=== PATIENT | female | born 1975 | race Caucasian/White ===

== ENCOUNTER → 2016-04-22 | Outpatient (CLI) | payer MEDICARE, OTHER ==
[~2016-04-22] MED LIST: /FENO14TA PO; /HYDR1TAB PO; AMLO5TAB2 PO; ASPI81TA7 PO; ASPI81TA85 PO; ATEN50TA2 PO; CARA1TAB2 PO; CRES40TA PO; CYCL10TA3 PO; CYMB60CA3 PO; INSUH10VL INJ; LANS30CA PO; LOSA50TA20 PO; LOVA1CAP16 PO; LOVAZA PO; METF1000 PO; METFORMIN PO; MIRA255PW PO; MOTR200T PO; NAPR500T2 PO; NOVO70VL SC; NOVOLOG SC; OXYC30TA4 PO; OXYCON; PERC7.5T12 PO; TOPA100T PO; TOPIPOW3 PO; TRAM37.5 PO; TRIL135C PO; ULTR50TA PO
[2016-04-22 18:11] LABS: BASO # 0.1 K/mm3 (0.0-0.2); BASO % 0.9 % (0.0-1.0); EOS # 0.6 K/mm3 (0.0-0.50); EOS % 5.2 % (0.0-3.0); LARGE UNSTAINED CELL # 0.2 K/mm3 (0.0-0.4); LARGE UNSTAINED CELL % 1.8 % (0.0-4.0); LYMPH # 4.2 K/mm3 (1.5-4.5); LYMPH % 36.5 % (24.0-44.0); MEAN CORPUSCULAR HEMOGLOBIN 29.5 pg (27.0-33.0); MEAN CORPUSCULAR HGB CONC 32.9 g/dl (32.0-36.5); MEAN CORPUSCULAR VOLUME 89.7 fl (80.0-96.0); MONO # 0.6 K/mm3 (0.0-0.8); MONO % 5.2 % (0.0-5.0); NEUTROPHILS # 5.5 K/mm3 (1.8-7.7); NEUTROPHILS % 50.4 % (36.0-66.0); PLATELET COUNT, AUTOMATED 594 k/mm3 (150-450); RED CELL DISTRIBUTION WIDTH 13.6 % (11.5-14.5); WHITE BLOOD COUNT 10.9 K/mm3 (4.0-10.0)
[2016-04-22 18:28] LABS: CALCIUM LEVEL 9.5 MG/DL (8.5-10.1); CREATININE FOR GFR 1.22 MG/DL (0.55-1.02); POTASSIUM SERUM 4.7 MEQ/L (3.5-5.1)
[2016-04-22 18:37] LABS: INR 1.03
== END ==
LOC: M WUC 14:38
PROVIDERS: ATTEND Anesthesiology
DX: Z01.812 Encounter for preprocedural laboratory examination (principal); Z79.899 Other long term (current) drug therapy

== ENCOUNTER → 2016-09-12 | Outpatient (CLI) | payer MEDICARE, OTHER ==
[2016-09-12 13:31] LABS: ALBUMIN 3.5 GM/DL (3.2-5.2); BILIRUBIN,TOTAL 0.1 MG/DL (0.2-1.0); CALCIUM LEVEL 9.4 MG/DL (8.5-10.1); CREATININE FOR GFR 1.23 MG/DL (0.55-1.02); GLOMERULAR FILTRATION RATE 51.2 (>58); POTASSIUM SERUM 5.1 MEQ/L (3.5-5.1)
== END ==
LOC: M WUC 09:57
PROVIDERS: ATTEND Nurse Practitioner Family
DX: E11.9 Type 2 diabetes mellitus without complications (principal)

== ENCOUNTER → 2016-10-31 | Outpatient (CLI) | payer MEDICARE, OTHER ==
[2016-10-31 12:22] LABS: ALBUMIN 3.7 GM/DL (3.2-5.2); ALBUMIN/GLOBULIN RATIO 1.16 (1.00-1.93); BILIRUBIN,TOTAL 0.2 MG/DL (0.2-1.0); CALCIUM LEVEL 10.1 MG/DL (8.5-10.1); CREATININE FOR GFR 1.17 MG/DL (0.55-1.02); GLOMERULAR FILTRATION RATE 54.3 (>58); TOTAL PROTEIN 6.9 GM/DL (6.4-8.2)
[2016-10-31 12:23] LABS: POTASSIUM SERUM 5.3 MEQ/L (3.5-5.1)
== END ==
LOC: M WUC 10:29
PROVIDERS: ATTEND Ophthalmology
DX: E11.3599 Type 2 diabetes mellitus with proliferative diabetic retinopathy without macular edema, unspecified eye (principal)

== ENCOUNTER → 2017-05-28 | Outpatient (CLI) | payer MEDICARE, OTHER | LOC: M WUC 15:21 | DX: M17.11 Unilateral primary osteoarthritis, right knee (principal) | CPT/HCPCS: 73560 ==

== ENCOUNTER → 2017-08-04 | Outpatient (CLI) | payer MEDICARE, OTHER ==
[2017-08-04 12:07] LABS: BLOOD UREA NITROGEN 28 MG/DL (7-18)
[2017-08-04 12:07] LABS: CREATININE FOR GFR 1.31 MG/DL (0.55-1.30); GLOMERULAR FILTRATION RATE 47.4 (>58)
== END ==
LOC: M WUC 08:27
DX: M96.1 Postlaminectomy syndrome, not elsewhere classified (principal)
CPT/HCPCS: 82565

== ENCOUNTER → 2017-09-30 | Outpatient (CLI) | payer MEDICARE, OTHER ==
[2017-09-30 11:59] LABS: BASO # 0.1 10^3/uL (0.0-0.2); BASO % 0.6 % (0.0-1.0); EOS # 0.6 10^3/uL (0.0-0.50); EOS % 6.1 % (0.0-3.0); HEMATOCRIT 30.6 % (36.0-47.0); IMMATURE GRANULOCYTE % 1.1 % (0-3.0); LYMPH # 4.2 10^3/uL (1.5-4.5); LYMPH % 41.2 % (24.0-44.0); MEAN CORPUSCULAR HGB CONC 32.7 g/dl (32.0-36.5); MEAN CORPUSCULAR VOLUME 85.7 fl (80.0-96.0); MONO # 0.5 10^3/uL (0.0-0.8); MONO % 4.7 % (0.0-5.0); NEUTROPHILS # 4.7 10^3/uL (1.8-7.7); NEUTROPHILS % 46.3 % (36.0-66.0); PLATELET COUNT, AUTOMATED 457 10^3/uL (150-450); RED BLOOD COUNT 3.57 10^6/uL (4.00-5.40); RED CELL DISTRIBUTION WIDTH 14.5 % (11.5-14.5); WHITE BLOOD COUNT 10.2 10^3/uL (4.0-10.0)
[2017-09-30 12:14] LABS: APPEARANCE, URINE HAZY (CLEAR); BACTERIA, URINE AUTO NEGATIVE (NEGATIVE); BILIRUBIN, URINE AUTO NEGATIVE (NEGATIVE); BLOOD, URINE BLOOD 1+ (NEGATIVE); COLOR, URINE STRAW (YELLOW); GLUCOSE, URINE (UA) AUTO 3+ mg/dL (NEGATIVE); KETONE, URINE AUTO NEGATIVE (NEGATIVE); LEUKOCYTE ESTERASE, URINE AUTO NEGATIVE (NEGATIVE); MUCUS, URINE SMALL (NEGATIVE); NITRITE, URINE AUTO NEGATIVE (NEGATIVE); PROTEIN, URINE AUTO 1+ mg/dL (NEGATIVE); RBC, URINE AUTO 5 /HPF (0-3); SPECIFIC GRAVITY URINE AUTO 1.016 (1.002-1.035); SQUAMOUS EPITHELIAL CELL UR AU 4 /HPF (0-6); UROBILINOGEN, URINE AUTO 0.2 mg/dL (0.0-2.0); WBC, URINE AUTO 1 /HPF (0-3)
[2017-09-30 12:39] LABS: ANION GAP 8 MEQ/L (8-16); BLOOD UREA NITROGEN 28 MG/DL (7-18); CALCIUM LEVEL 8.8 MG/DL (8.5-10.1); CARBON DIOXIDE LEVEL 23 MEQ/L (21-32); CHLORIDE LEVEL 103 MEQ/L (98-107); GLOMERULAR FILTRATION RATE 40.5 (>58); GLUCOSE, FASTING 373 MG/DL (70-100); POTASSIUM SERUM 4.9 MEQ/L (3.5-5.1); SODIUM LEVEL 134 MEQ/L (136-145)
== END ==
LOC: M WUC 08:19
DX: M96.1 Postlaminectomy syndrome, not elsewhere classified (principal); M51.26 Other intervertebral disc displacement, lumbar region
CPT/HCPCS: 80048

== ENCOUNTER 2017-11-17 12:06 | Emergency (ER) | payer MEDICARE, OTHER ==
[2017-11-17 13:14] LABS: VENOUS BASE EXCESS -2.7 (-2.0-2.0); VENOUS HCO3 23.5 MEQ/L (23.0-27.0); VENOUS O2 SATURATION 72.4 % (60.0-80.0); VENOUS PARTIAL PRESSURE CO2 47.3 mmHg (38.0-50.0); VENOUS PARTIAL PRESSURE O2 39.5 mmHg (30.0-50.0); VENOUS PH 7.314 UNITS (7.330-7.430); VENOUS STANDARD HCO3 21.8 MEQ/L; VENOUS TOTAL CO2 24.9 MEQ/L (24.0-28.0)
[2017-11-17 13:29] LABS: LACTIC ACID SEPSIS PROTOCOL 1.3 MMOL/L (0.4-2.0)
[2017-11-17] MEDS: NS 1,000 ML IV (13:29)
[2017-11-17] MEDS: METOCLOPRAMIDE INJ 10MG/2ML VIAL (J2765) IV (13:29)
[2017-11-17 13:30] LABS: BASO # 0.1 10^3/uL (0.0-0.2); BASO % 0.3 % (0.0-1.0); EOS # 0.4 10^3/uL (0.0-0.50); EOS % 2.5 % (0.0-3.0); HEMATOCRIT 27.8 % (36.0-47.0); HEMOGLOBIN 8.7 g/dl (12.0-15.5); IMMATURE GRANULOCYTE % 0.9 % (0-3.0); LYMPH % 12.3 % (24.0-44.0); MEAN CORPUSCULAR HEMOGLOBIN 27.4 pg (27.0-33.0); MEAN CORPUSCULAR HGB CONC 31.3 g/dl (32.0-36.5); MEAN CORPUSCULAR VOLUME 87.4 fl (80.0-96.0); MONO # 1.2 10^3/uL (0.0-0.8); MONO % 7.4 % (0.0-5.0); NEUTROPHILS # 12.3 10^3/uL (1.8-7.7); NEUTROPHILS % 76.6 % (36.0-66.0); PLATELET COUNT, AUTOMATED 654 10^3/uL (150-450); RED BLOOD COUNT 3.18 10^6/uL (4.00-5.40); RED CELL DISTRIBUTION WIDTH 13.8 % (11.5-14.5); WHITE BLOOD COUNT 16.1 10^3/uL (4.0-10.0)
[2017-11-17 13:32] LABS: ALBUMIN 2.7 GM/DL (3.2-5.2); ALBUMIN/GLOBULIN RATIO 0.66 (1.00-1.93); ALKALINE PHOSPHATASE 61 U/L (45-117); ALT/SGPT 18 U/L (12-78); AMYLASE 22 U/L (25-115); ANION GAP 9 MEQ/L (8-16); AST/SGOT 9 U/L (7-37); BILIRUBIN,DIRECT < 0.1 MG/DL (0.0-0.2); BILIRUBIN,TOTAL 0.3 MG/DL (0.2-1.0); BLOOD UREA NITROGEN 24 MG/DL (7-18); CALCIUM LEVEL 8.7 MG/DL (8.5-10.1); CARBON DIOXIDE LEVEL 26 MEQ/L (21-32); CHLORIDE LEVEL 104 MEQ/L (98-107); CREATININE FOR GFR 1.32 MG/DL (0.55-1.30); GLUCOSE, FASTING 256 MG/DL (70-100); INR 0.99; POTASSIUM SERUM 4.8 MEQ/L (3.5-5.1); PROTHROMBIN TIME 13.2 SECONDS (12.1-14.4); SODIUM LEVEL 139 MEQ/L (136-145); TOTAL PROTEIN 6.8 GM/DL (6.4-8.2)
[2017-11-17 14:08] LABS: APPEARANCE, URINE HAZY (CLEAR); BACTERIA, URINE AUTO NEGATIVE (NEGATIVE); BILIRUBIN, URINE AUTO NEGATIVE (NEGATIVE); BLOOD, URINE BLOOD NEGATIVE (NEGATIVE); COLOR, URINE YELLOW (YELLOW); GLUCOSE, URINE (UA) AUTO 3+ mg/dL (NEGATIVE); KETONE, URINE AUTO NEGATIVE (NEGATIVE); LEUKOCYTE ESTERASE, URINE AUTO NEGATIVE (NEGATIVE); MUCUS, URINE SMALL (NEGATIVE); NITRITE, URINE AUTO NEGATIVE (NEGATIVE); PROTEIN, URINE AUTO 2+ mg/dL (NEGATIVE); RBC, URINE AUTO 5 /HPF (0-3); SPECIFIC GRAVITY URINE AUTO 1.018 (1.002-1.035); SQUAMOUS EPITHELIAL CELL UR AU 2 /HPF (0-6); UROBILINOGEN, URINE AUTO 0.2 mg/dL (0.0-2.0); WBC, URINE AUTO 1 /HPF (0-3)
[2017-11-17] MEDS: LABETALOL HCL 100 MG/20 ML VIAL IV ×2 (16:11→16:19)
[2017-11-17] MEDS: ACETAMINOPHEN 325 MG TAB PO (16:16)
[2017-11-20 14:21] LABS: BEDSIDE GLUCOSE 257 MG/DL (70-105)
== END 2017-11-17 16:33 | disposition short-term general hospital (02) ==
LOC: M ED 12:06
DX: R51 Headache (principal); G96.0 Cerebrospinal fluid leak; E11.9 Type 2 diabetes mellitus without complications; M54.9 Dorsalgia, unspecified; G89.29 Other chronic pain; F17.200 Nicotine dependence, unspecified, uncomplicated; Z88.1 Allergy status to other antibiotic agents; Z88.8 Allergy status to other drugs, medicaments and biological substances; Z79.899 Other long term (current) drug therapy; Z79.4 Long term (current) use of insulin; Z79.2 Long term (current) use of antibiotics
CPT/HCPCS: J2765

== ENCOUNTER → 2018-01-07 | Outpatient (CLI) | payer MEDICARE, OTHER ==
[~2018-01-07] MED LIST changes: -/FENO14TA PO; -/HYDR1TAB PO; -AMLO5TAB2 PO; -ASPI81TA7 PO; -ASPI81TA85 PO; -ATEN50TA2 PO; -CARA1TAB2 PO; -CRES40TA PO; -CYCL10TA3 PO; -CYMB60CA3 PO; -INSUH10VL INJ; +ISOVUE-370 76% 100ML VIAL (Q9967) As Ordered; -LANS30CA PO; -LOSA50TA20 PO; -LOVA1CAP16 PO; -LOVAZA PO; -METF1000 PO; -METFORMIN PO; -MIRA255PW PO; -MOTR200T PO; -NAPR500T2 PO; -NOVO70VL SC; -NOVOLOG SC; -OXYC30TA4 PO; -OXYCON; -PERC7.5T12 PO; -TOPA100T PO; -TOPIPOW3 PO; -TRAM37.5 PO; -TRIL135C PO; -ULTR50TA PO
== END ==
LOC: M RAD 15:16
DX: M96.1 Postlaminectomy syndrome, not elsewhere classified (principal); M48.061 Spinal stenosis, lumbar region without neurogenic claudication; M46.46 Discitis, unspecified, lumbar region
CPT/HCPCS: Q9967

== ENCOUNTER → 2018-01-12 | Outpatient (CLI) | payer MEDICARE, OTHER ==
[2018-01-12 14:10] LABS: BASO # 0.1 10^3/uL (0.0-0.2); BASO % 0.6 % (0.0-1.0); EOS # 0.8 10^3/uL (0.0-0.50); EOS % 7.8 % (0.0-3.0); HEMATOCRIT 30.7 % (36.0-47.0); HEMOGLOBIN 9.6 g/dl (12.0-15.5); IMMATURE GRANULOCYTE % 0.4 % (0-3.0); LYMPH # 2.6 10^3/uL (1.5-4.5); LYMPH % 26.2 % (24.0-44.0); MEAN CORPUSCULAR HEMOGLOBIN 25.7 pg (27.0-33.0); MEAN CORPUSCULAR HGB CONC 31.3 g/dl (32.0-36.5); MEAN CORPUSCULAR VOLUME 82.3 fl (80.0-96.0); MONO # 0.5 10^3/uL (0.0-0.8); MONO % 4.8 % (0.0-5.0); NEUTROPHILS % 60.2 % (36.0-66.0); PLATELET COUNT, AUTOMATED 852 10^3/uL (150-450); RED BLOOD COUNT 3.73 10^6/uL (4.00-5.40); RED CELL DISTRIBUTION WIDTH 15.5 % (11.5-14.5)
[2018-01-12 14:59] LABS: ESTIMATED AVERAGE GLUCOSE 214 MG/DL (60-110); HEMOGLOBIN A1c 9.1 %
[2018-01-12 15:11] LABS: ALBUMIN 3.5 GM/DL (3.2-5.2); ALBUMIN/GLOBULIN RATIO 0.81 (1.00-1.93); ALKALINE PHOSPHATASE 46 U/L (45-117); ALT/SGPT 15 U/L (12-78); ANION GAP 12 MEQ/L (8-16); AST/SGOT 10 U/L (7-37); BILIRUBIN,TOTAL 0.2 MG/DL (0.2-1.0); BLOOD UREA NITROGEN 14 MG/DL (7-18); CALCIUM LEVEL 9.9 MG/DL (8.5-10.1); CARBON DIOXIDE LEVEL 23 MEQ/L (21-32); CHLORIDE LEVEL 108 MEQ/L (98-107); CREATININE FOR GFR 1.07 MG/DL (0.55-1.30); FERRITIN 33 NG/ML (8-252); GLOMERULAR FILTRATION RATE 59.9 (>58); GLUCOSE, FASTING 88 MG/DL (70-100); IRON (FE) 27 UG/DL (50-170); POTASSIUM SERUM 4.9 MEQ/L (3.5-5.1); SODIUM LEVEL 143 MEQ/L (136-145); TOTAL PROTEIN 7.8 GM/DL (6.4-8.2)
[2018-01-12 23:13] LABS: FOLATE 7.9 NG/ML
== END ==
LOC: M LAB 13:34
DX: E11.29 Type 2 diabetes mellitus with other diabetic kidney complication (principal); D50.9 Iron deficiency anemia, unspecified
CPT/HCPCS: 82746

== ENCOUNTER → 2018-08-06 | Outpatient (CLI) | payer MEDICARE, OTHER ==
[~2018-08-06] MED LIST changes: +/HYDR1TAB PO; +ACET1TAB55 PO; +ALPR2TAB3 PO; +AMLO5TAB2 PO; +ASPI81TA7 PO; +ASPI81TA85 PO; +ATEN50TA2 PO; +BYET1INJ SC; +CARA1TAB2 PO; +CEPH500C PO; +CRES40TA PO; +CYCL10TA3 PO; +CYMB60CA3 PO; +EXCETAB80 PO; +IBUP-1022 PO; +INSUH10VL INJ; +INSUHUMDS SC; -ISOVUE-370 76% 100ML VIAL (Q9967) As Ordered; +LANS30CA PO; +LOSA50TA20 PO; +LOVA1CAP16 PO; +LOVAZA PO; +METF1000 PO; +METFORMIN PO; +METH75TA PO; +MOTR200T PO; +NAPR500T2 PO; +NOVO70VL SC; +NOVOLOG SC; +OXYC10TA3 PO; +OXYC30TA4 PO; +OXYCON; +PERC7.5T12 PO; +POLY1POW4 PO; +TOPA100T PO; +TOPIPOW3 PO; +TRAM37.5 PO; +TRES1INJ2 SC; +TRIC145T19 PO; +TRIL135C PO; +ULTR50TA PO
--- NOTE | 2018-08-06 14:18 | REP ---
Right wrist four view : There is no fracture or dislocation. Mineralization and joint spaces are normal. There are no calcifications or foreign bodies. Impression: Negative right wrist . Electronically Signed by Ruperto Dixon MD 08/06/2018 02:09 P
== END ==
LOC: M WUC 12:49
PROVIDERS: ATTEND Nurse Practitioner Family
DX: M25.531 Pain in right wrist (principal)

== ENCOUNTER → 2020-10-24 | Outpatient (CLI) | payer MEDICARE, MEDICAID ==
[~2020-10-24] MED LIST changes: +ISOVUE-300 61% 50ML VIAL As Ordered ONE; +LIDOCAINE 1% MDV 20ML VIAL As Ordered ONE; +METH-1165 PO; -METH75TA PO
--- NOTE | 2020-10-24 10:35 | REP ---
INDICATION: LEFT SHOULDER PAIN. COMPARISON: None. TECHNIQUE: Following left shoulder arthrogram procedure, axial CT imaging is performed with sagittal oblique and coronal oblique reconstructions. FINDINGS: There is a full-thickness partial tear of the anterior supraspinatus tendon. There is a full-thickness partial tear of the infraspinatus tendon as well. There are mild hypertrophic degenerative changes of the acromioclavicular joint. There is a type 1 acromion. Within the bicipital groove the biceps tendon is visualized. 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 There appears to be fraying of the biceps labral complex. No labral tear is seen. There is mild chondromalacia of the glenohumeral joint. There is no evidence of fracture or dislocation. No bone lesion is seen. IMPRESSION: There is a full-thickness partial tear of the anterior supraspinatus tendon. There is a full-thickness partial tear of the infraspinatus tendon. There are mild hypertrophic degenerative changes of the acromioclavicular joint. Fraying of the biceps labral complex with no evidence of a labral tear. <Electronically signed by Ruperto Bennett > 10/24/20 1039
--- NOTE | 2020-10-24 16:30 | REP ---
INDICATION: LEFT SHOULDER PAIN COMPARISON: None. TECHNIQUE: The procedure was performed under the direct supervision of Dr. Bennett. The benefits and risks including but not limited to pain, infection, bleeding and anaphylaxis were explained to the patient and informed consent was obtained. The left glenohumeral joint space was localized using fluoroscopic guidance. The skin was prepped and draped in a sterile fashion. 1% lidocaine was used as a local anesthetic. Using fluoroscopic guidance, and last image hold technology, a 22 gauge spinal needle was inserted and advanced into the joint. 11 cc of Isovue-[id number] was injected into the joint. The needle was removed and the patient was taken to CT scan for postprocedural imaging. Estimated blood loss: Less than 1 cc. The patient tolerated the procedure well and there were no immediate complications. Less than 6 seconds of fluoro time was utilized for this procedure. FINDINGS: None IMPRESSION: Fluoro guidance for left shoulder CT arthrogram injection. <Electronically signed by Julian Leon > 10/24/20 1545 <Electronically signed by Ruperto Bennett > 10/24/20 [id number]
== END ==
LOC: M RADPRO 08:34
PROVIDERS: ATTEND Nurse Practitioner Family
DX: R93.7 Abnormal findings on diagnostic imaging of other parts of musculoskeletal system (principal); M25.512 Pain in left shoulder
CPT/HCPCS: 23350; 73201; 77002; Q9967

== ENCOUNTER 2021-06-22 17:06 | Emergency (ER) | payer MEDICARE, MEDICAID ==
[~2021-06-22] VITALS: Ht 157.5 cm; Wt 89.5 kg
[~2021-06-22 17:06] MED LIST changes: -ISOVUE-300 61% 50ML VIAL As Ordered ONE; -LIDOCAINE 1% MDV 20ML VIAL As Ordered ONE
[2021-06-22] MEDS ORDERED: BRIN10TA4 PO (17:19)
[2021-06-22] MEDS ORDERED: LISI10TA22 PO (17:19)
[2021-06-22] MEDS ORDERED: DEXI60CA2 PO (17:19)
[2021-06-22] MEDS ORDERED: DULA4.5P SC (17:19)
[2021-06-22 17:52] LABS: BASO # 0.1 10^3/uL (0.0-0.2); BASO % 0.5 % (0.0-1.0); EOS # 0.4 10^3/uL (0.0-0.5); EOS % 3.3 % (0.0-3.0); HEMATOCRIT 28.3 % (36.0-47.0); HEMOGLOBIN 9.2 g/dl (12.0-15.5); LYMPH # 3.7 10^3/uL (1.5-5.0); LYMPH % 31.5 % (24.0-44.0); MEAN CORPUSCULAR HEMOGLOBIN 28.5 pg (27.0-33.0); MEAN CORPUSCULAR HGB CONC 32.5 g/dl (32.0-36.5); MEAN CORPUSCULAR VOLUME 87.6 fl (80.0-96.0); MONO # 0.7 10^3/uL (0.0-0.8); MONO % 6.3 % (2.0-8.0); NEUTROPHILS # 6.8 10^3/uL (1.5-8.5); NEUTROPHILS % 57.3 % (36.0-66.0); PLATELET COUNT, AUTOMATED 528 10^3/uL (150-450); RED BLOOD COUNT 3.23 10^6/uL (4.00-5.40); WHITE BLOOD COUNT 11.8 10^3/uL (4.0-10.0)
[2021-06-22] MEDS ORDERED: NS 1,000 ML IV ONE (18:00)
[2021-06-22] MEDS ORDERED: KETOROLAC 30 MG/ML 1ML VIAL IV ONE (18:00)
[2021-06-22] MEDS ORDERED: ONDANSETRON 4MG/2ML VIAL IV ONE ×2 (18:00→21:00)
[2021-06-22] MEDS ORDERED: KETOROLAC 30 MG/ML 1ML VIAL As Ordered ONE ×2 (18:03→18:05)
[2021-06-22 18:22] LABS: ALBUMIN 2.2 GM/DL (3.2-5.2); ALT/SGPT 17 U/L (12-78); BILIRUBIN,DIRECT < 0.1 MG/DL (0.0-0.2); BILIRUBIN,TOTAL 0.3 MG/DL (0.2-1.0); LIPASE 186 U/L (73-393); TOTAL PROTEIN 5.9 GM/DL (6.4-8.2)
[2021-06-22 19:16] LABS: BLOOD UREA NITROGEN 34 MG/DL (7-18); CARBON DIOXIDE LEVEL 22 MEQ/L (21-32); CHLORIDE LEVEL 105 MEQ/L (98-107); CREATININE FOR GFR 1.51 MG/DL (0.55-1.30); GLOMERULAR FILTRATION RATE 39.5 (>58); GLUCOSE, FASTING 292 MG/DL (70-100); POTASSIUM SERUM 4.5 MEQ/L (3.5-5.1); SODIUM LEVEL 138 MEQ/L (136-145)
[2021-06-22 19:27] LABS: HCG, SERUM QUALITATIVE NEGATIVE (NEGATIVE)
[2021-06-22] MEDS ORDERED: ISOVUE-370 76% 100ML VIAL As Ordered ONE (19:33)
[2021-06-22] MEDS ORDERED: CIPR250T3 PO (21:03)
[2021-06-22] MEDS ORDERED: CIPROFLOXACIN 250MG TAB PO ONE (21:05)
[2021-06-22 21:35] VITALS: BP 184/92
== END 2021-06-22 21:36 | disposition home or self-care (01) ==
LOC: M ED 17:06
DX: N39.0 Urinary tract infection, site not specified (principal); E11.9 Type 2 diabetes mellitus without complications; E78.5 Hyperlipidemia, unspecified; I10 Essential (primary) hypertension; N18.9 Chronic kidney disease, unspecified; F17.200 Nicotine dependence, unspecified, uncomplicated; Z88.1 Allergy status to other antibiotic agents; Z88.6 Allergy status to analgesic agent; Z88.8 Allergy status to other drugs, medicaments and biological substances
CPT/HCPCS: 36415; 74177; 80047; 80048; 80076; 81001; 83690; 84703; 85025; 87088; 87186; 96361; 96374; 96375; 96376; 99284; J1885; J2405; Q9967

== ENCOUNTER 2021-06-24 14:10 | Observation (INO) | payer MEDICARE, MEDICAID ==
[~2021-06-24] VITALS: Ht 157.5 cm; Wt 108.0 kg
[~2021-06-24 14:10] MED LIST changes: +BRIN10TA4 PO; +CIPR250T3 PO; +DEXI60CA2 PO; +DULA4.5P SC; +LISI10TA22 PO
[2021-06-24 16:32] LABS: BASO # 0.1 10^3/uL (0.0-0.2); BASO % 0.6 % (0.0-1.0); EOS # 0.4 10^3/uL (0.0-0.5); EOS % 3.6 % (0.0-3.0); HEMATOCRIT 27.2 % (36.0-47.0); HEMOGLOBIN 8.8 g/dl (12.0-15.5); LYMPH # 3.7 10^3/uL (1.5-5.0); LYMPH % 36.8 % (24.0-44.0); MEAN CORPUSCULAR HEMOGLOBIN 28.9 pg (27.0-33.0); MEAN CORPUSCULAR HGB CONC 32.4 g/dl (32.0-36.5); MEAN CORPUSCULAR VOLUME 89.2 fl (80.0-96.0); MONO # 0.6 10^3/uL (0.0-0.8); MONO % 5.6 % (2.0-8.0); NEUTROPHILS # 5.2 10^3/uL (1.5-8.5); NEUTROPHILS % 52.6 % (36.0-66.0); PLATELET COUNT, AUTOMATED 512 10^3/uL (150-450); RED BLOOD COUNT 3.05 10^6/uL (4.00-5.40)
[2021-06-24] MEDS ORDERED: MORPHINE 4 MG/ML 1ML VIAL/SYRINGE (J2270) IV ONE (16:35)
[2021-06-24] MEDS ORDERED: ONDANSETRON 4MG/2ML VIAL IV ONE ×2 (16:35→18:45)
[2021-06-24] MEDS ORDERED: cefTRIAXone SOD 1 GM in D5W MINI-BAG PLUS 50 ML IV ONE (16:35)
[2021-06-24 16:49] LABS: CREATININE FOR GFR 1.59 MG/DL (0.55-1.30); GLOMERULAR FILTRATION RATE 37.2 (>58); POTASSIUM SERUM 4.6 MEQ/L (3.5-5.1)
[2021-06-24] MEDS ORDERED: ISOVUE-370 76% 100ML VIAL As Ordered ONE (16:58)
[2021-06-24 17:18] LABS: RSV AMPLIFICATION NEGATIVE (NEGATIVE)
[2021-06-24] MEDS ORDERED: ACETAMINOPHEN 325 MG TAB PO ONE (18:45)
[2021-06-24] MEDS ORDERED: LEVO2TA PO (18:50)
[2021-06-24] MEDS ORDERED: ONDANSETRON 4MG/2ML VIAL IV PRN (19:00)
[2021-06-24] MEDS ORDERED: TRIL135C6 PO (19:01)
[2021-06-24] MEDS ORDERED: METF-838 PO (19:01)
[2021-06-24] MEDS ORDERED: SFHIBU200 PO (19:01)
[2021-06-24] MEDS ORDERED: HOME MED LIST COMPLETE! XX SCH ×2 (19:05→19:15)
[2021-06-24] MEDS: NS 1,000 ML IV SCH (20:27)
[2021-06-24] MEDS ORDERED: KETOROLAC 30 MG/ML 1ML VIAL IV ONE (20:30)
[2021-06-24] MEDS ORDERED: DEXTROSE 50% 50 ML SYRINGE IV PRN (21:10)
[2021-06-24] MEDS ORDERED: GLUCAGON INJ 1MG VIAL SC PRN (21:10)
[2021-06-24] MEDS ORDERED: GLUCOSE 4GM CHEW TABLET PO PRN (21:10)
[2021-06-24 21:30] VITALS: BP 166/90
[2021-06-24] MEDS: **hydrALAZINE** 10 MG TAB PO PRN (23:01)
[2021-06-24 23:02] VITALS: BP 172/93
[2021-06-25] VITALS (7 sets, daily range): BP systolic 138–220; BP diastolic 67–120
[2021-06-25] MEDS: UNRESOLVED PATIENT OWN MED ORDER XX SCH (00:01)
[2021-06-25] MEDS: NS 1,000 ML IV SCH (04:11)
[2021-06-25] MEDS: LEVOTHYROXINE 100MCG TABLET (0.1MG) PO SCH (06:16)
[2021-06-25 06:25] LABS: BASO # 0.1 10^3/uL (0.0-0.2); BASO % 0.5 % (0.0-1.0); EOS # 0.3 10^3/uL (0.0-0.5); EOS % 3.4 % (0.0-3.0); HEMATOCRIT 24.4 % (36.0-47.0); HEMOGLOBIN 7.6 g/dl (12.0-15.5); LYMPH # 3.8 10^3/uL (1.5-5.0); MEAN CORPUSCULAR HGB CONC 31.1 g/dl (32.0-36.5); MONO # 0.6 10^3/uL (0.0-0.8); MONO % 6.4 % (2.0-8.0); NEUTROPHILS # 4.6 10^3/uL (1.5-8.5); NEUTROPHILS % 48.7 % (36.0-66.0); PLATELET COUNT, AUTOMATED 464 10^3/uL (150-450); RED BLOOD COUNT 2.71 10^6/uL (4.00-5.40); WHITE BLOOD COUNT 9.5 10^3/uL (4.0-10.0)
[2021-06-25 06:52] LABS: CALCIUM LEVEL 7.9 MG/DL (8.5-10.1); CREATININE FOR GFR 1.72 MG/DL (0.55-1.30); POTASSIUM SERUM 4.3 MEQ/L (3.5-5.1)
[2021-06-25] MEDS: PANTOPRAZOLE 40MG TAB (PROTONIX) PO SCH (08:02)
[2021-06-25] MEDS: LACTOBACILLUS ACIDOPHILUS CAP (BACID) PO SCH (08:02)
[2021-06-25] MEDS: FENOFIBRATE 145MG TABLET (TRICOR) PO SCH (08:02)
[2021-06-25] MEDS: HumaLOG INSULIN (NovoLOG) PER UNIT SC SCH ×2 (08:03→12:24)
[2021-06-25] MEDS: LEVEMIR (INSULIN DETEMIR) 1 UNITS/0.01ML SC SCH (08:03)
[2021-06-25] MEDS: ACETAMINOPHEN TAB 650MG DOSE (2X325MG) PO PRN ×3 (08:10→20:59)
[2021-06-25] MEDS ORDERED: ENTER DRUG NAME HERE (PATIENT'S OWN MED) PO SCH (09:00)
[2021-06-25] MEDS: HEPARIN SOD (PORCINE) 5000UNITS/ML 1ML VIAL/SYRINGE SQ SCH ×2 (14:04→21:00)
[2021-06-25] MEDS: **hydrALAZINE** 10 MG TAB PO PRN ×2 (14:56→21:11)
[2021-06-25] MEDS ORDERED: amLODIPine 5 MG TAB PO ONE (16:30)
[2021-06-25] MEDS ORDERED: HumaLOG INSULIN (NovoLOG) PER UNIT SC SCH ×3 (17:30→21:00)
[2021-06-25] MEDS ORDERED: cefTRIAXone SOD 1 GM in D5W MINI-BAG PLUS 50 ML IV SCH (19:00)
[2021-06-25] MEDS ORDERED: diphenhydrAMINE 50MG/ML VIAL (J1200) IV ONE (22:25)
[2021-06-25] MEDS ORDERED: **hydrALAZINE** 10 MG TAB PO ONE (22:25)
[2021-06-25] MEDS ORDERED: PROCHLORPERAZINE 10MG/2ML VIAL (J0780 PER 1) IV ONE (22:25)
[2021-06-25] MEDS ORDERED: traMADol 50 MG TAB PO PRN (22:30)
[2021-06-25] MEDS ORDERED: LABETALOL 100MG/20ML VIAL IV STA (23:34)
[2021-06-26] VITALS (11 sets, daily range): BP systolic 146–217; BP diastolic 72–104
[2021-06-26] MEDS: UNRESOLVED PATIENT OWN MED ORDER XX SCH (00:01)
[2021-06-26] MEDS ORDERED: LABETALOL 100MG/20ML VIAL IV STA (00:58)
[2021-06-26] MEDS ORDERED: hydrALAZINE 20MG/ML 1ML VIAL (J0360 PER 20MG) IV ONE ×2 (02:00→04:00)
[2021-06-26] MEDS ORDERED: FUROSEMIDE 20MG/2ML VIAL (J1940) IV ONE (02:00)
[2021-06-26] MEDS: HEPARIN SOD (PORCINE) 5000UNITS/ML 1ML VIAL/SYRINGE SQ SCH ×2 (05:34→13:51)
[2021-06-26] MEDS: LEVOTHYROXINE 100MCG TABLET (0.1MG) PO SCH (05:34)
[2021-06-26 05:40] LABS: BASO # 0.1 10^3/uL (0.0-0.2); BASO % 0.5 % (0.0-1.0); EOS # 0.3 10^3/uL (0.0-0.5); EOS % 2.9 % (0.0-3.0); HEMATOCRIT 27.3 % (36.0-47.0); HEMOGLOBIN 8.8 g/dl (12.0-15.5); LYMPH # 2.5 10^3/uL (1.5-5.0); LYMPH % 25.2 % (24.0-44.0); MEAN CORPUSCULAR HEMOGLOBIN 28.2 pg (27.0-33.0); MEAN CORPUSCULAR HGB CONC 32.2 g/dl (32.0-36.5); MEAN CORPUSCULAR VOLUME 87.5 fl (80.0-96.0); MONO # 0.7 10^3/uL (0.0-0.8); MONO % 6.4 % (2.0-8.0); NEUTROPHILS # 6.4 10^3/uL (1.5-8.5); NEUTROPHILS % 63.3 % (36.0-66.0); PLATELET COUNT, AUTOMATED 523 10^3/uL (150-450); RED BLOOD COUNT 3.12 10^6/uL (4.00-5.40); WHITE BLOOD COUNT 10.1 10^3/uL (4.0-10.0)
[2021-06-26] MEDS ORDERED: LevoFLOXacin 750 MG TABLET PO SCH (06:00)
[2021-06-26 06:02] LABS: CALCIUM LEVEL 8.8 MG/DL (8.5-10.1); CREATININE FOR GFR 1.65 MG/DL (0.55-1.30); GLOMERULAR FILTRATION RATE 35.7 (>58); MAGNESIUM LEVEL 1.7 MG/DL (1.8-2.4); POTASSIUM SERUM 4.5 MEQ/L (3.5-5.1)
[2021-06-26] MEDS ORDERED: MAG SULF 1GM/100ML (MAG RUN) 1 GM in IV 1 EA IV ONE (08:00)
[2021-06-26] MEDS: LEVEMIR (INSULIN DETEMIR) 1 UNITS/0.01ML SC SCH (08:10)
[2021-06-26] MEDS: HumaLOG INSULIN (NovoLOG) PER UNIT SC SCH ×2 (08:11→11:52)
[2021-06-26] MEDS: LACTOBACILLUS ACIDOPHILUS CAP (BACID) PO SCH (08:11)
[2021-06-26] MEDS: ACETAMINOPHEN TAB 650MG DOSE (2X325MG) PO PRN (08:11)
[2021-06-26] MEDS: FENOFIBRATE 145MG TABLET (TRICOR) PO SCH (08:12)
[2021-06-26] MEDS: PANTOPRAZOLE 40MG TAB (PROTONIX) PO SCH (08:12)
[2021-06-26] MEDS ORDERED: **hydrALAZINE HCL** 25 MG TAB PO SCH (09:00)
[2021-06-26] MEDS ORDERED: amLODIPine 5 MG TAB PO SCH (09:00)
[2021-06-26] MEDS ORDERED: CARVedilol 12.5 MG TAB PO SCH (09:00)
[2021-06-26] MEDS ORDERED: CEFDINIR 300 MG CAP (OMNICEF) PO SCH (09:00)
[2021-06-26] MEDS ORDERED: FIORICET TAB PO ONE (11:35)
[2021-06-26] MEDS ORDERED: HumaLOG INSULIN (NovoLOG) PER UNIT SC SCH (12:00)
[2021-06-26] MEDS ORDERED: FIORICET TAB PO PRN (13:35)
[2021-06-26] MEDS ORDERED: RISATAB3 PO (16:01)
[2021-06-26] MEDS ORDERED: CARV12.5 PO (16:01)
[2021-06-26] MEDS ORDERED: HYDR25TA PO (16:01)
[2021-06-26] MEDS ORDERED: CEFD300CAP PO (16:01)
== END 2021-06-26 17:31 | disposition home or self-care (01) ==
LOC: M ED 14:10 → M ED INP 18:58 → ENRESERV 20:14 → M MSPAV 21:25 → M PCU 06-25 23:56
PROVIDERS: ADMIT Family Medicine; ATTEND Internal Medicine
DX: N39.0 Urinary tract infection, site not specified (principal); N10 Acute pyelonephritis; R51.9 Headache, unspecified; I12.9 Hypertensive chronic kidney disease with stage 1 through stage 4 chronic kidney disease, or unspecified chronic kidney disease; E11.9 Type 2 diabetes mellitus without complications; N18.9 Chronic kidney disease, unspecified; D64.9 Anemia, unspecified; G03.9 Meningitis, unspecified; F41.9 Anxiety disorder, unspecified; E03.9 Hypothyroidism, unspecified; E66.9 Obesity, unspecified; G89.29 Other chronic pain; Z79.4 Long term (current) use of insulin; Z79.899 Other long term (current) drug therapy; Z88.1 Allergy status to other antibiotic agents; Z88.8 Allergy status to other drugs, medicaments and biological substances; Z79.84 Long term (current) use of oral hypoglycemic drugs
CPT/HCPCS: 36415; 70450; 71045; 74177; 80048; 81001; 83605; 83735; 85025; 87040; 87631; 93005; 93041; 94760; 96361; 96365; 96366; 96372; 96375; 96376; 99285; G0378; J0360; J0696; J0780; J1200; J1644; J1815; J1885; J1940; J2270; J2405; J3475; Q9967

== ENCOUNTER → 2021-07-08 | Outpatient (REF) | payer MEDICARE, MEDICAID ==
[~2021-07-08] MED LIST changes: +CARV12.5 PO; +CEFD300CAP PO; +HYDR25TA PO; +LEVO2TA PO; +METF-838 PO; +RISATAB3 PO; +SFHIBU200 PO; +TRIL135C6 PO
[2021-07-08 16:11] LABS: BASO # 0.1 10^3/uL (0.0-0.2); BASO % 0.6 % (0.0-1.0); EOS # 0.4 10^3/uL (0.0-0.5); HEMOGLOBIN 9.1 g/dl (12.0-15.5); LYMPH # 3.4 10^3/uL (1.5-5.0); LYMPH % 34.8 % (24.0-44.0); MEAN CORPUSCULAR HEMOGLOBIN 28.1 pg (27.0-33.0); MEAN CORPUSCULAR HGB CONC 31.4 g/dl (32.0-36.5); MEAN CORPUSCULAR VOLUME 89.5 fl (80.0-96.0); MONO # 0.7 10^3/uL (0.0-0.8); MONO % 7.1 % (2.0-8.0); NEUTROPHILS # 5.2 10^3/uL (1.5-8.5); NEUTROPHILS % 52.4 % (36.0-66.0); PLATELET COUNT, AUTOMATED 613 10^3/uL (150-450); RED BLOOD COUNT 3.24 10^6/uL (4.00-5.40); WHITE BLOOD COUNT 9.9 10^3/uL (4.0-10.0)
[2021-07-08 16:35] LABS: CALCIUM LEVEL 8.6 MG/DL (8.5-10.1); CREATININE FOR GFR 1.68 MG/DL (0.55-1.30); GLOMERULAR FILTRATION RATE 34.9 (>58); POTASSIUM SERUM 5.2 MEQ/L (3.5-5.1)
== END ==
LOC: M WUC 15:30
PROVIDERS: ATTEND Family Medicine
DX: N12 Tubulo-interstitial nephritis, not specified as acute or chronic (principal); I10 Essential (primary) hypertension

== ENCOUNTER → 2021-07-08 | Outpatient (REF) | payer MEDICARE, MEDICAID ==
[2021-07-08 16:42] LABS: THYROID STIMULATING HORMONE 80.3 uIU/ML (0.358-3.740)
[2021-07-08 16:43] LABS: TOTAL 25(OH) VITAMIN D 15.2 NG/ML (30.0-100.0)
[2021-07-08 16:52] LABS: HEMOGLOBIN A1c 11.5 %
== END ==
LOC: M WUC 15:32
PROVIDERS: ATTEND Internal Medicine Endocrinology, Diabetes & Metabolism
DX: E03.9 Hypothyroidism, unspecified (principal); E55.9 Vitamin D deficiency, unspecified; E11.65 Type 2 diabetes mellitus with hyperglycemia; N12 Tubulo-interstitial nephritis, not specified as acute or chronic; I10 Essential (primary) hypertension; Z79.4 Long term (current) use of insulin

== ENCOUNTER → 2021-07-10 | Outpatient (REF) | payer MEDICARE, MEDICAID ==
[2021-07-10 17:14] LABS: APPEARANCE, URINE HAZY (CLEAR); BACTERIA, URINE AUTO NEGATIVE (NEGATIVE); BILIRUBIN, URINE AUTO NEGATIVE (NEGATIVE); BLOOD, URINE BLOOD NEGATIVE (NEGATIVE); COLOR, URINE YELLOW (YELLOW); GLUCOSE, URINE (UA) AUTO 3+ mg/dL (NEGATIVE); KETONE, URINE AUTO NEGATIVE (NEGATIVE); LEUKOCYTE ESTERASE, URINE AUTO NEGATIVE (NEGATIVE); NITRITE, URINE AUTO NEGATIVE (NEGATIVE); PROTEIN, URINE AUTO 3+ mg/dL (NEGATIVE); RBC, URINE AUTO 0 /HPF (0-3); SPECIFIC GRAVITY URINE AUTO 1.015 (1.002-1.035); SQUAMOUS EPITHELIAL CELL UR AU 6 /HPF (0-6); UROBILINOGEN, URINE AUTO 0.2 mg/dL (0.0-2.0); WBC, URINE AUTO 1 /HPF (0-3)
== END ==
LOC: M SMT 16:46
PROVIDERS: ATTEND Nurse Practitioner Women's Health
DX: N12 Tubulo-interstitial nephritis, not specified as acute or chronic (principal)

== ENCOUNTER 2021-09-10 18:03 | Emergency (ER) | payer MEDICARE, MEDICAID ==
[~2021-09-10] VITALS: Ht 157.5 cm; Wt 98.2 kg
[2021-09-11 00:21] LABS: ALBUMIN 2.8 GM/DL (3.2-5.2); ALT/SGPT 22 U/L (12-78); BILIRUBIN,DIRECT < 0.1 MG/DL (0.0-0.2); BILIRUBIN,TOTAL 0.1 MG/DL (0.2-1.0); BLOOD UREA NITROGEN 33 MG/DL (7-18); CALCIUM LEVEL 8.2 MG/DL (8.5-10.1); CARBON DIOXIDE LEVEL 23 MEQ/L (21-32); CHLORIDE LEVEL 111 MEQ/L (98-107); CREATININE FOR GFR 1.77 MG/DL (0.55-1.30); GLOMERULAR FILTRATION RATE 32.9 (>58); GLUCOSE, FASTING 238 MG/DL (70-100); LIPASE 233 U/L (73-393); POTASSIUM SERUM 4.5 MEQ/L (3.5-5.1); SODIUM LEVEL 140 MEQ/L (136-145); TOTAL PROTEIN 5.9 GM/DL (6.4-8.2)
[2021-09-11 00:27] LABS: HEMATOCRIT 28.1 % (36.0-47.0); HEMOGLOBIN 9.3 g/dl (12.0-15.5); MEAN CORPUSCULAR HEMOGLOBIN 28.8 pg (27.0-33.0); MEAN CORPUSCULAR HGB CONC 33.1 g/dl (32.0-36.5); PLATELET COUNT, AUTOMATED 496 10^3/uL (150-450); RED BLOOD COUNT 3.23 10^6/uL (4.00-5.40); WHITE BLOOD COUNT 10.4 10^3/uL (4.0-10.0)
[2021-09-11 01:11] LABS: ATYPICAL LYMPH 1 % (0-5); EOSINOPHILS 7 % (0-3); LYMPHOCYTES 45 % (16-44); MONOCYTES 4 % (0-5); NEUTROPHILS 43 % (28-66); PLATELET ESTIMATE INCREASED (NORMAL)
[2021-09-11] MEDS ORDERED: MORPHINE 4 MG/ML 1ML VIAL/SYRINGE IV PRN (02:40)
[2021-09-11] MEDS ORDERED: ONDANSETRON 4MG/2ML VIAL IV ONE (02:40)
[2021-09-11] MEDS: GASTROGRAFIN SOLUTION 30ML PO SCH ×2 (03:15→03:45)
[2021-09-11] MEDS ORDERED: OXYCODONE/APAP 5MG/325MG(BULK FOR ED) 1 TABLET PO ONE (06:30)
[2021-09-11] MEDS ORDERED: NAPROXEN 250 MG TAB PO ONE (06:30)
[2021-09-11] MEDS ORDERED: NAPR-849 PO (06:30)
[2021-09-11 06:46] VITALS: BP 148/92
== END 2021-09-11 06:35 | disposition home or self-care (01) ==
LOC: M ED 18:03
DX: R10.9 Unspecified abdominal pain (principal); E11.9 Type 2 diabetes mellitus without complications; I12.9 Hypertensive chronic kidney disease with stage 1 through stage 4 chronic kidney disease, or unspecified chronic kidney disease; Z87.448 Personal history of other diseases of urinary system; K21.9 Gastro-esophageal reflux disease without esophagitis; F41.1 Generalized anxiety disorder; I25.10 Atherosclerotic heart disease of native coronary artery without angina pectoris; R16.0 Hepatomegaly, not elsewhere classified; Z79.4 Long term (current) use of insulin; Z79.899 Other long term (current) drug therapy; Z88.1 Allergy status to other antibiotic agents; Z88.8 Allergy status to other drugs, medicaments and biological substances
CPT/HCPCS: 74176; 80048; 80076; 81001; 83690; 85025; 93005; 96374; 96375; 99284; J2270; J2405; Q9963

== ENCOUNTER → 2021-09-17 | Outpatient (REF) | payer MEDICARE, MEDICAID ==
[~2021-09-17] MED LIST changes: +NAPR-849 PO
[2021-09-17 17:47] LABS: TOTAL PROTEIN,RANDOM URINE 378.3 MG/DL (0.0-12.0)
[2021-09-17 17:47] LABS: PERCENT SATURATION 5.2 % (13.2-45.0)
== END ==
LOC: M LAB REF 16:46
PROVIDERS: ATTEND Internal Medicine Nephrology
DX: I10 Essential (primary) hypertension (principal); E11.21 Type 2 diabetes mellitus with diabetic nephropathy; E61.1 Iron deficiency

== ENCOUNTER 2021-09-30 09:15 | Outpatient (CLI) | payer MEDICARE, MEDICAID ==
[~2021-09-30] VITALS: Ht 157.5 cm; Wt 104.3 kg
[2021-09-30 09:15] VITALS: BP 139/74
[~2021-09-30 09:15] MED LIST changes: +ALBUTEROL SULFATE 2.5 MG/0.5 ML INH NEB SOLN INH PRN; +EPINEPHrine INJ 1 MG/ML 1ML AMP IM PRN; +FERRIC CARBOXYMALTOSE INJ 750 MG in NS 250 ML (>50kg) IV ONE; +NS 1,000 ML IV SCH; +diphenhydrAMINE 50MG/ML VIAL (J1200) IV PRN; +methylPREDNISolone 125MG 2ML VIAL IV PRN
[2021-09-30 10:50] VITALS: BP 149/73
== END 2021-09-30 11:05 | disposition home or self-care (01) ==
LOC: M INFU 09:15
PROVIDERS: ATTEND Internal Medicine Nephrology
DX: E61.1 Iron deficiency (principal); Z88.1 Allergy status to other antibiotic agents; Z88.8 Allergy status to other drugs, medicaments and biological substances
CPT/HCPCS: 96365; J1439

== ENCOUNTER 2021-10-07 08:50 | Outpatient (CLI) | payer MEDICARE, MEDICAID ==
[~2021-10-07] VITALS: Ht 157.5 cm; Wt 102.7 kg
[2021-10-07 08:50] VITALS: BP 133/66
[~2021-10-07 08:50] MED LIST changes: -FERRIC CARBOXYMALTOSE INJ 750 MG in NS 250 ML (>50kg) IV ONE; -NS 1,000 ML IV SCH
[2021-10-07] MEDS ORDERED: FERRIC CARBOXYMALTOSE INJ 750 MG in NS 250 ML (>50kg) IV ONE ×3 (09:00)
[2021-10-07] MEDS ORDERED: NS 1,000 ML IV SCH (09:00)
[2021-10-07 10:15] VITALS: BP 177/86
== END 2021-10-07 10:25 | disposition home or self-care (01) ==
LOC: M INFU 08:50
PROVIDERS: ATTEND Internal Medicine Nephrology
DX: E61.1 Iron deficiency (principal); Z88.8 Allergy status to other drugs, medicaments and biological substances
CPT/HCPCS: 96365; J1439

== ENCOUNTER → 2021-12-18 | Outpatient (REF) | payer MEDICARE, MEDICAID ==
[~2021-12-18] MED LIST changes: -ALBUTEROL SULFATE 2.5 MG/0.5 ML INH NEB SOLN INH PRN; -EPINEPHrine INJ 1 MG/ML 1ML AMP IM PRN; -diphenhydrAMINE 50MG/ML VIAL (J1200) IV PRN; -methylPREDNISolone 125MG 2ML VIAL IV PRN
== END ==
LOC: M LAB REF 17:42
PROVIDERS: ATTEND Internal Medicine Nephrology
DX: E61.1 Iron deficiency (principal)

== ENCOUNTER → 2022-05-09 | Outpatient (REF) | payer MEDICARE, MEDICAID ==
[2022-05-09 18:20] LABS: PERCENT SATURATION 19.4 % (13.2-45.0)
== END ==
LOC: M LAB REF 17:04
PROVIDERS: ATTEND Internal Medicine Nephrology
DX: E61.1 Iron deficiency (principal)

== ENCOUNTER → 2022-07-09 | Outpatient (CLI) | payer MEDICARE, MEDICAID | LOC: M RAD 14:37 | PROVIDERS: ATTEND Physician Assistant | DX: J32.8 Other chronic sinusitis (principal); J34.2 Deviated nasal septum ==

== ENCOUNTER → 2022-07-17 | Outpatient (CLI) | payer MEDICARE, MEDICAID ==
[2022-07-17 16:56] LABS: HEMOGLOBIN A1c 6.8 % (4.0-6.0)
[2022-07-17 17:16] LABS: CREATININE, URINE 44.2 MG/DL
[2022-07-17 17:17] LABS: ALBUMIN 3.5 G/DL (3.2-5.2); BILIRUBIN,TOTAL 0.2 MG/DL (0.3-1.2); CALCIUM LEVEL 9.4 MG/DL (8.5-10.1); CHOLESTEROL RISK RATIO 5.09 (<5); CREATININE FOR GFR 1.81 MG/DL (0.55-1.30); GLOMERULAR FILTRATION RATE 31.9 (>58); HDL CHOLESTEROL 53.8 MG/DL (>40); LDL CHOLESTEROL 154.6 MG/DL (<100); NON-HDL-C 220.2 MG/DL; POTASSIUM SERUM 4.7 MMOL/L (3.5-5.1); TOTAL PROTEIN 6.7 G/DL (5.7-8.2)
[2022-07-17 17:19] LABS: FREE T4 1.22 NG/DL (0.89-1.76); THYROID STIMULATING HORMONE 2.086 uIU/ML (0.55-4.78); TOTAL 25(OH) VITAMIN D 17.4 NG/ML (20.0-100.0)
[2022-07-17 17:28] LABS: MAU/CREAT RATIO 5391.4 MCG/MG (0.0-30.0)
[2022-07-19 08:09] LABS: LDL DIRECT 168 mg/dL (0-99)
== END ==
LOC: M WUC 13:58
PROVIDERS: ATTEND Nurse Practitioner Family
DX: E55.9 Vitamin D deficiency, unspecified (principal); Z79.4 Long term (current) use of insulin; E11.65 Type 2 diabetes mellitus with hyperglycemia

== ENCOUNTER → 2022-07-17 | Outpatient (CLI) | payer MEDICARE, MEDICAID ==
[2022-07-17 16:46] LABS: BASO # 0.1 10^3/uL (0.0-0.2); BASO % 0.8 % (0.0-1.0); EOS # 0.4 10^3/uL (0.0-0.5); EOS % 4.4 % (0.0-3.0); HEMATOCRIT 31.7 % (36.0-47.0); HEMOGLOBIN 10.1 g/dl (12.0-15.5); LYMPH # 2.9 10^3/uL (1.5-5.0); LYMPH % 28.7 % (24.0-44.0); MEAN CORPUSCULAR HEMOGLOBIN 29.9 pg (27.0-33.0); MEAN CORPUSCULAR HGB CONC 31.9 g/dl (32.0-36.5); MEAN CORPUSCULAR VOLUME 93.8 fl (80.0-96.0); MONO # 0.5 10^3/uL (0.0-0.8); MONO % 5.2 % (2.0-8.0); NEUTROPHILS # 5.9 10^3/uL (1.5-8.5); NEUTROPHILS % 59.6 % (36.0-66.0); PLATELET COUNT, AUTOMATED 661 10^3/uL (150-450); RED BLOOD COUNT 3.38 10^6/uL (4.00-5.40); WHITE BLOOD COUNT 9.9 10^3/uL (4.0-10.0)
[2022-07-17 17:20] LABS: FOLLICLE STIMULATING HORMONE 52.3 mIU/ML; LUTEINIZING HORMONE 58.7 mIU/ML; PROLACTIN 5.1 NG/ML
[2022-07-17 17:21] LABS: PROGESTERONE 0.34 NG/ML
== END ==
LOC: M WUC 13:54
PROVIDERS: ATTEND Nurse Practitioner Family
DX: R61 Generalized hyperhidrosis (principal); E55.9 Vitamin D deficiency, unspecified; Z79.4 Long term (current) use of insulin; E11.65 Type 2 diabetes mellitus with hyperglycemia

== ENCOUNTER → 2022-07-23 | Outpatient (REF) | payer MEDICARE, MEDICAID ==
[2022-07-23 18:51] LABS: BASO # 0.1 10^3/uL (0.0-0.2); BASO % 0.9 % (0.0-1.0); EOS # 0.7 10^3/uL (0.0-0.5); EOS % 7.2 % (0.0-3.0); HEMATOCRIT 31.8 % (36.0-47.0); HEMOGLOBIN 9.8 g/dl (12.0-15.5); LYMPH # 3.3 10^3/uL (1.5-5.0); LYMPH % 34.8 % (24.0-44.0); MEAN CORPUSCULAR HEMOGLOBIN 29.7 pg (27.0-33.0); MEAN CORPUSCULAR HGB CONC 30.8 g/dl (32.0-36.5); MEAN CORPUSCULAR VOLUME 96.4 fl (80.0-96.0); MONO # 0.6 10^3/uL (0.0-0.8); MONO % 6.2 % (2.0-8.0); NEUTROPHILS # 4.7 10^3/uL (1.5-8.5); NEUTROPHILS % 49.8 % (36.0-66.0); PLATELET COUNT, AUTOMATED 633 10^3/uL (150-450); WHITE BLOOD COUNT 9.4 10^3/uL (4.0-10.0)
[2022-07-23 19:17] LABS: FERRITIN 108.1 NG/ML (7.3-270.7)
== END ==
LOC: M LAB REF 16:45
PROVIDERS: ATTEND Internal Medicine Nephrology
DX: E63.1 Imbalance of constituents of food intake (principal)

== ENCOUNTER 2022-07-29 08:19 | Outpatient (CLI) | payer MEDICARE, MEDICAID ==
[~2022-07-29] VITALS: Ht 157.5 cm; Wt 102.7 kg
[~2022-07-29 08:19] MED LIST changes: +ALBUTEROL SULFATE 2.5MG/0.5ML INH NEB SOLN INH PRN; +EPINEPHrine INJ 1 MG/ML 1ML AMP IM PRN; +diphenhydrAMINE 50MG/ML VIAL IV PRN; +methylPREDNISolone 125MG 2ML VIAL IV PRN
[2022-07-29] MEDS ORDERED: NS IV ONE (08:30)
[2022-07-29] MEDS ORDERED: IRON SUCROSE IV ONE (08:30)
[2022-07-29] MEDS ORDERED: NS 1,000 ML IV SCH (08:30)
[2022-07-29 09:15] VITALS: BP 165/78
[2022-07-29 10:46] VITALS: BP 150/80
== END 2022-07-29 10:45 | disposition home or self-care (01) ==
LOC: M INFU 08:19
PROVIDERS: ATTEND Internal Medicine Nephrology
DX: E61.1 Iron deficiency (principal); Z88.1 Allergy status to other antibiotic agents; Z88.8 Allergy status to other drugs, medicaments and biological substances
CPT/HCPCS: 96365; 96366; J1756

== ENCOUNTER 2022-08-05 09:00 | Outpatient (CLI) | payer MEDICARE, MEDICAID ==
[~2022-08-05] VITALS: Ht 157.5 cm; Wt 102.7 kg
[2022-08-05 08:40] VITALS: BP 138/80
[~2022-08-05 09:00] MED LIST changes: +IRON SUCROSE IV ONE; +NS 1,000 ML IV SCH; +NS IV ONE
[2022-08-05 10:35] VITALS: BP 136/74
== END 2022-08-05 10:40 | disposition home or self-care (01) ==
LOC: M INFU 09:00
PROVIDERS: ATTEND Internal Medicine Nephrology
DX: E61.1 Iron deficiency (principal); Z88.1 Allergy status to other antibiotic agents; Z88.8 Allergy status to other drugs, medicaments and biological substances
CPT/HCPCS: 96365; J1756

== ENCOUNTER 2022-08-12 08:55 | Outpatient (CLI) | payer MEDICARE, MEDICAID ==
[~2022-08-12] VITALS: Ht 157.5 cm; Wt 104.7 kg
[~2022-08-12 08:55] MED LIST changes: -IRON SUCROSE IV ONE; -NS 1,000 ML IV SCH; -NS IV ONE
[2022-08-12 09:00] VITALS: BP 152/86
[2022-08-12] MEDS ORDERED: IRON SUCROSE IV ONE (09:00)
[2022-08-12] MEDS ORDERED: NS IV ONE (09:00)
[2022-08-12] MEDS ORDERED: NS 1,000 ML IV SCH (09:00)
== END 2022-08-12 11:22 | disposition home or self-care (01) ==
LOC: M INFU 08:55
PROVIDERS: ATTEND Internal Medicine Nephrology
DX: E61.1 Iron deficiency (principal); Z88.1 Allergy status to other antibiotic agents; Z88.8 Allergy status to other drugs, medicaments and biological substances
CPT/HCPCS: 96365; 96366; J1756

== ENCOUNTER → 2022-10-15 | Outpatient (CLI) | payer MEDICARE, MEDICAID ==
[~2022-10-15] MED LIST changes: -ALBUTEROL SULFATE 2.5MG/0.5ML INH NEB SOLN INH PRN; -EPINEPHrine INJ 1 MG/ML 1ML AMP IM PRN; +ERGO500029 PO; +LEVO175T2 PO; +LISI40TA4 PO; -diphenhydrAMINE 50MG/ML VIAL IV PRN; -methylPREDNISolone 125MG 2ML VIAL IV PRN
[2022-10-15 16:31] LABS: BASO # 0.1 10^3/uL (0.0-0.2); BASO % 0.6 % (0.0-1.0); EOS # 0.4 10^3/uL (0.0-0.5); EOS % 4.7 % (0.0-3.0); HEMATOCRIT 32.4 % (36.0-47.0); HEMOGLOBIN 10.4 g/dl (12.0-15.5); LYMPH # 2.7 10^3/uL (1.5-5.0); LYMPH % 29.5 % (24.0-44.0); MEAN CORPUSCULAR HEMOGLOBIN 30.7 pg (27.0-33.0); MEAN CORPUSCULAR HGB CONC 32.1 g/dl (32.0-36.5); MEAN CORPUSCULAR VOLUME 95.6 fl (80.0-96.0); MONO # 0.6 10^3/uL (0.0-0.8); MONO % 6.9 % (2.0-8.0); NEUTROPHILS # 5.2 10^3/uL (1.5-8.5); NEUTROPHILS % 57.5 % (36.0-66.0); PLATELET COUNT, AUTOMATED 508 10^3/uL (150-450); RED BLOOD COUNT 3.39 10^6/uL (4.00-5.40)
[2022-10-15 16:49] LABS: PERCENT SATURATION 21.3 % (13.2-45.0)
[2022-10-15 16:52] LABS: FERRITIN 235.5 NG/ML (7.3-270.7)
== END ==
LOC: M LAB 15:56
PROVIDERS: ATTEND Internal Medicine Nephrology
DX: E61.1 Iron deficiency (principal)

== ENCOUNTER 2022-10-24 16:12 | Emergency (ER) | payer MEDICARE, MEDICAID ==
[~2022-10-24] VITALS: Ht 154.9 cm; Wt 101.8 kg
[2022-10-24 16:13] VITALS: TEMP 98.6
[2022-10-24 17:25] LABS: BASO # 0.1 10^3/uL (0.0-0.2); BASO % 0.8 % (0.0-1.0); EOS # 0.5 10^3/uL (0.0-0.5); EOS % 4.9 % (0.0-3.0); HEMATOCRIT 32.5 % (36.0-47.0); HEMOGLOBIN 10.5 g/dl (12.0-15.5); LYMPH # 2.9 10^3/uL (1.5-5.0); LYMPH % 30.9 % (24.0-44.0); MEAN CORPUSCULAR HEMOGLOBIN 30.7 pg (27.0-33.0); MEAN CORPUSCULAR HGB CONC 32.3 g/dl (32.0-36.5); MONO # 0.7 10^3/uL (0.0-0.8); NEUTROPHILS # 5.2 10^3/uL (1.5-8.5); NEUTROPHILS % 55.2 % (36.0-66.0); PLATELET COUNT, AUTOMATED 533 10^3/uL (150-450); RED BLOOD COUNT 3.42 10^6/uL (4.00-5.40); WHITE BLOOD COUNT 9.4 10^3/uL (4.0-10.0)
[2022-10-24 17:26] LABS: CK-MB VALUE MASS 1.4 NG/ML (<3.6); LIPASE 73 U/L (12-53)
[2022-10-24 17:28] LABS: ALBUMIN 3.6 G/DL (3.2-5.2); ALKALINE PHOSPHATASE 47 U/L (46-116); ALT/SGPT 10 U/L (7.0-40); AST/SGOT 19 U/L (<34); BILIRUBIN,DIRECT < 0.1 MG/DL (<0.4); BILIRUBIN,TOTAL 0.2 MG/DL (0.3-1.2); BLOOD UREA NITROGEN 57 MG/DL (9-23); CARBON DIOXIDE LEVEL 20 MMOL/L (20-31); CHLORIDE LEVEL 109 MMOL/L (98-107); CREATININE FOR GFR 2.11 MG/DL (0.55-1.30); GLOMERULAR FILTRATION RATE 26.7 (>58); GLUCOSE, FASTING 104 MG/DL (60-100); POTASSIUM SERUM 4.9 MMOL/L (3.5-5.1); SODIUM LEVEL 139 MMOL/L (136-145); TOTAL PROTEIN 6.5 G/DL (5.7-8.2)
[2022-10-24 17:29] LABS: INR 1.03; PROTHROMBIN TIME 13.7 SECONDS (12.5-14.5)
[2022-10-24 17:46] LABS: CPK CREATINE PHOSPHOKINASE 96 U/L (34-145); MB/CK RELATIVE INDEX 1.45 (< OR =4)
[2022-10-24 18:15] LABS: FREE T4 1.04 NG/DL (0.89-1.76)
[2022-10-24 18:16] LABS: THYROID STIMULATING HORMONE 1.574 uIU/ML (0.55-4.78)
[2022-10-24 19:51] LABS: CK-MB VALUE MASS 1.4 NG/ML (<3.6)
[2022-10-24 20:00] LABS: MB/CK RELATIVE INDEX 1.44 (< OR =4)
[2022-10-24] MEDS ORDERED: diphenhydrAMINE 50MG/ML VIAL IV ONE (20:15)
[2022-10-24] MEDS ORDERED: METOCLOPRAMIDE INJ 10MG/2ML VIAL IV ONE (20:15)
[2022-10-24] MEDS ORDERED: MAG SULF 1GM/100ML (MAG RUN) 1 GM in IV 1 EA IV ONE (20:15)
[2022-10-24] MEDS ORDERED: ACETAMINOPHEN 500 MG TAB PO ONE (20:15)
[2022-10-24 21:01] VITALS: O2SAT 98
[2022-10-24 21:55] VITALS: BP 157/73
== END 2022-10-24 21:58 | disposition home or self-care (01) ==
LOC: M ED 16:12
DX: R10.12 Left upper quadrant pain (principal); R51.9 Headache, unspecified; E11.9 Type 2 diabetes mellitus without complications; E78.5 Hyperlipidemia, unspecified; K21.9 Gastro-esophageal reflux disease without esophagitis; J45.909 Unspecified asthma, uncomplicated; E03.9 Hypothyroidism, unspecified; Z79.4 Long term (current) use of insulin; Z79.899 Other long term (current) drug therapy; Z88.8 Allergy status to other drugs, medicaments and biological substances; Z88.1 Allergy status to other antibiotic agents
CPT/HCPCS: 74176; 80048; 80076; 82550; 82553; 83690; 84439; 84443; 84484; 85025; 85610; 86850; 86900; 86901; 93005; 93041; 94760; 96365; 96375; 99285; J2765; J3475

== ENCOUNTER → 2023-07-08 | Outpatient (REF) | payer MEDICARE, MEDICAID ==
[~2023-07-08] MED LIST changes: +ASA; +ASPI-1 PO; +FERR325T3 PO; +FLUTISP; +FOLI1TAB11 PO; -HYDR25TA PO; +HYDR25TA88 PO; +METO1TAB32 PO; +MULT400T10 PO
== END ==
LOC: M LAB REF 17:16
PROVIDERS: ATTEND Internal Medicine Nephrology
DX: N18.4 Chronic kidney disease, stage 4 (severe) (principal); Z79.899 Other long term (current) drug therapy

== ENCOUNTER → 2023-08-24 | Outpatient (CLI) | payer MEDICARE, MEDICAID ==
[2023-08-24 17:26] LABS: FREE T4 1.18 NG/DL (0.89-1.76)
[2023-08-24 17:27] LABS: THYROID STIMULATING HORMONE 7.499 uIU/ML (0.55-4.78); TOTAL 25(OH) VITAMIN D 62.4 NG/ML (20.0-100.0)
[2023-08-24 17:29] LABS: ALKALINE PHOSPHATASE 57 U/L (46-116); ALT/SGPT 14 U/L (7.0-40); AST/SGOT 17 U/L (<34); BILIRUBIN,TOTAL < 0.2 MG/DL (0.3-1.2); BLOOD UREA NITROGEN 74 MG/DL (9-23); CALCIUM LEVEL 8.7 MG/DL (8.5-10.1); CARBON DIOXIDE LEVEL 20 MMOL/L (20-31); CHLORIDE LEVEL 105 MMOL/L (98-107); CHOLESTEROL LEVEL 164 MG/DL (<200); CHOLESTEROL RISK RATIO 4.02 (<5); CREATININE FOR GFR 3.08 MG/DL (0.55-1.30); GLOMERULAR FILTRATION RATE 17.2 (>58); GLUCOSE, FASTING 156 MG/DL (60-100); HDL CHOLESTEROL 40.7 MG/DL (>40); NON-HDL-C 123.3 MG/DL; POTASSIUM SERUM 5.2 MMOL/L (3.5-5.1); SODIUM LEVEL 136 MMOL/L (136-145); TOTAL PROTEIN 6.3 G/DL (5.7-8.2); TRIGLYCERIDES LEVEL 474 MG/DL (<150)
[2023-08-24 17:38] LABS: CREATININE, URINE 39.4 MG/DL
[2023-08-24 17:46] LABS: HEMOGLOBIN A1c 6.2 % (4.0-6.0)
[2023-08-24 17:52] LABS: MAU/CREAT RATIO 4609.1 MCG/MG (0.0-30.0)
== END ==
LOC: M WUC 11:44
PROVIDERS: ATTEND Nurse Practitioner Family
DX: E11.65 Type 2 diabetes mellitus with hyperglycemia (principal); Z79.4 Long term (current) use of insulin; E55.9 Vitamin D deficiency, unspecified

== ENCOUNTER → 2023-09-01 | Outpatient (REF) | payer MEDICARE, MEDICAID ==
[~2023-09-01] MED LIST changes: +ICOS1CAP PO; +LEVO200T4 PO; +METO50TA7 PO; +TIRZ10PE SQ
[2023-09-01 17:46] LABS: CREATININE,RANDOM URINE 68.9 MG/DL
[2023-09-01 17:47] LABS: TOTAL PROTEIN,RANDOM URINE 525.2 MG/DL (0.0-14.0)
== END ==
LOC: M LAB REF 16:57
PROVIDERS: ATTEND Internal Medicine Nephrology
DX: E11.21 Type 2 diabetes mellitus with diabetic nephropathy (principal)

== ENCOUNTER 2023-10-05 06:45 | Day surgery (SDC) | payer MEDICARE, MEDICAID ==
[~2023-10-05] VITALS: Ht 154.9 cm; Wt 100.2 kg
[~2023-10-05 06:45] MED LIST changes: +FENO135C6 PO; +HUMA100I5; +LEVOTAB10 PO; +TIRZ12.5
[2023-10-05] MEDS ORDERED: LR 1,000 ML IV SCH (07:00)
[2023-10-05] MEDS: PHENYLEPHRINE 2.5% OPHTH SOL 2ML OS SCH (07:37)
[2023-10-05] MEDS: FLURBIPROFEN 0.03% OPHTH SOLN 2.5 ML OS SCH (07:37)
[2023-10-05] MEDS: ATROPINE SULFATE 1% OPHTH SOLN 2ML BTL OS SCH (07:37)
[2023-10-05] MEDS: TETRACAINE 0.5% OPHTH SOLN 4ML OS SCH (07:38)
[2023-10-05] MEDS: LIDOCAINE 1% SDV 5ML VIAL As Ordered ONE (09:11)
[2023-10-05] MEDS ORDERED: fentaNYL 100 MCG/2 ML INJECTION As Ordered ONE (09:12)
[2023-10-05] MEDS ORDERED: MIDAZOLAM INJ 2MG/2ML VIAL As Ordered ONE (09:12)
[2023-10-05] MEDS: CEFUROXIME 1MG/0.1ML INTRACAMERAL INJ As Ordered ONE (09:12)
[2023-10-05 09:24] VITALS: BP 169/86; TEMP 97.9; O2SAT 96
== END 2023-10-05 09:47 | disposition home or self-care (01) ==
LOC: M SDC 06:45
PROVIDERS: ATTEND Ophthalmology
DX: E11.36 Type 2 diabetes mellitus with diabetic cataract (principal); H25.12 Age-related nuclear cataract, left eye; I12.9 Hypertensive chronic kidney disease with stage 1 through stage 4 chronic kidney disease, or unspecified chronic kidney disease; E03.9 Hypothyroidism, unspecified; I25.2 Old myocardial infarction; N18.9 Chronic kidney disease, unspecified; Z79.899 Other long term (current) drug therapy; Z79.82 Long term (current) use of aspirin; Z79.4 Long term (current) use of insulin; Z88.1 Allergy status to other antibiotic agents; Z88.8 Allergy status to other drugs, medicaments and biological substances
CPT/HCPCS: 66984; J0697; J2250; J3010; V2632

== ENCOUNTER 2023-11-02 06:49 | Day surgery (SDC) | payer MEDICARE, MEDICAID ==
[~2023-11-02] VITALS: Ht 154.9 cm; Wt 97.2 kg
[~2023-11-02 06:49] MED LIST changes: +REPA140I2 SQ; +UNRESOLVED CLARIFICATION ENTRY XX SCH
[2023-11-02] MEDS ORDERED: LR 1,000 ML IV SCH (07:00)
[2023-11-02] MEDS ORDERED: MIDAZOLAM INJ 2MG/2ML VIAL As Ordered ONE (07:04)
[2023-11-02] MEDS ORDERED: fentaNYL 100 MCG/2 ML INJECTION As Ordered ONE (07:04)
[2023-11-02] MEDS: TETRACAINE 0.5% OPHTH SOLN 4ML OD SCH (07:33)
[2023-11-02] MEDS: ATROPINE SULFATE 1% OPHTH SOLN 2ML BTL OD SCH (07:34)
[2023-11-02] MEDS: FLURBIPROFEN 0.03% OPHTH SOLN 2.5 ML OD SCH (07:34)
[2023-11-02] MEDS: PHENYLEPHRINE 2.5% OPHTH SOL 2ML OD SCH (07:34)
[2023-11-02] MEDS: LIDOCAINE 1% SDV 5ML VIAL As Ordered ONE (08:52)
[2023-11-02] MEDS: CEFUROXIME 1MG/0.1ML INTRACAMERAL INJ As Ordered ONE (08:57)
[2023-11-02 09:10] VITALS: BP 148/86; TEMP 96.8; O2SAT 100
== END 2023-11-02 09:45 | disposition home or self-care (01) ==
LOC: M SDC 06:49
PROVIDERS: ATTEND Ophthalmology
DX: H25.11 Age-related nuclear cataract, right eye (principal); I25.10 Atherosclerotic heart disease of native coronary artery without angina pectoris; I10 Essential (primary) hypertension; Z87.891 Personal history of nicotine dependence; D64.9 Anemia, unspecified; K21.9 Gastro-esophageal reflux disease without esophagitis; F43.10 Post-traumatic stress disorder, unspecified; F41.9 Anxiety disorder, unspecified; F32.A Depression, unspecified; Z88.1 Allergy status to other antibiotic agents; Z88.8 Allergy status to other drugs, medicaments and biological substances; Z79.82 Long term (current) use of aspirin; Z79.899 Other long term (current) drug therapy; E03.9 Hypothyroidism, unspecified; D47.3 Essential (hemorrhagic) thrombocythemia
CPT/HCPCS: 66984; J0697; J2250; J3010; V2632

== ENCOUNTER → 2024-01-14 | Outpatient (CLI) | payer MEDICARE, MEDICAID ==
[~2024-01-14] MED LIST changes: -UNRESOLVED CLARIFICATION ENTRY XX SCH
== END ==
LOC: M RAD 07:50
PROVIDERS: ATTEND Transplant Surgery
DX: Z01.818 Encounter for other preprocedural examination (principal); Z76.82 Awaiting organ transplant status

== ENCOUNTER → 2024-02-22 | Outpatient (REF) | payer MEDICARE, MEDICAID ==
[2024-02-22 12:45] LABS: HEMOGLOBIN A1c 6.7 % (4.0-6.0)
== END ==
LOC: M LAB REF 12:07
PROVIDERS: ATTEND Nurse Practitioner Family
DX: E11.21 Type 2 diabetes mellitus with diabetic nephropathy (principal); Z79.4 Long term (current) use of insulin; E03.9 Hypothyroidism, unspecified

== ENCOUNTER 2024-03-28 11:16 | Inpatient (IN) | payer MEDICARE, MEDICAID ==
[~2024-03-28] VITALS: Ht 154.9 cm; Wt 100.7 kg
[2024-03-28] MEDS ORDERED: LIDOCAINE 2% 100MG/5ML SDV (FOR ANES.) As Ordered ONE (12:39)
[2024-03-28] MEDS ORDERED: propofoL 200 MG/20 ML VIAL As Ordered ONE (12:39)
[2024-03-28] MEDS ORDERED: GLYCOPYRROLATE INJ 0.2 MG/ML 2 ML VIAL As Ordered ONE (12:39)
[2024-03-28] MEDS ORDERED: fentaNYL 100 MCG/2 ML INJECTION As Ordered ONE (13:08)
[2024-03-28] MEDS: NITROGLYCERIN 0.4MG SUBL TABLET SL STA ×2 (13:34→13:39)
[2024-03-28] MEDS: METOPROLOL 5 MG/5 ML VIAL IV STA (13:41)
[2024-03-28] MEDS ORDERED: LABETALOL 100MG/20ML VIAL As Ordered ONE (13:42)
[2024-03-28] MEDS ORDERED: METOPROLOL 5 MG/5 ML VIAL As Ordered ONE (13:42)
[2024-03-28] MEDS: MORPHINE 10 MG/ML 1ML VIAL IV STA (13:51)
[2024-03-28] MEDS: PHENYLEPHRINE HCL INJ 10 MG in D5W 100 ML IV SCH (14:14)
[2024-03-28] MEDS ORDERED: MORPHINE 2 MG/ML 1ML VIAL As Ordered ONE (14:25)
[2024-03-28] MEDS: MORPHINE 10 MG/ML 1ML VIAL IV ONE (14:26)
[2024-03-28 14:45] LABS: CK-MB VALUE MASS 2.2 NG/ML (<3.6)
[2024-03-28 14:46] LABS: CHOLESTEROL LEVEL 234 MG/DL (<200); CHOLESTEROL RISK RATIO 8.06 (<5); TRIGLYCERIDES LEVEL 613 MG/DL (<150)
[2024-03-28 14:58] LABS: MB/CK RELATIVE INDEX 1.91 (< OR =4)
[2024-03-28] MEDS ORDERED: CLOPIDOGREL 300 MG TAB (PLAVIX) PO STA (15:00)
[2024-03-28] MEDS: ASPIRIN 81MG CHEW TABLET PO ONE (15:04)
[2024-03-28] MEDS: NS 500 ML IV ONE (15:15)
[2024-03-28] MEDS ORDERED: NITROGLYCERIN 0.4MG SUBL TABLET SL PRN (15:30)
[2024-03-28] MEDS ORDERED: DEXTROSE 50% 50ML SYRINGE IV PRN (15:35)
[2024-03-28] MEDS ORDERED: GLUCOSE 4 GM CHEW PO PRN (15:35)
[2024-03-28] MEDS ORDERED: GLUCAGON INJ 1MG VIAL SC PRN (15:35)
[2024-03-28 15:53] LABS: HEMATOCRIT 28.3 % (36.0-47.0); HEMOGLOBIN 9.3 g/dl (12.0-15.5); MEAN CORPUSCULAR HEMOGLOBIN 30.5 pg (27.0-33.0); MEAN CORPUSCULAR HGB CONC 32.9 g/dl (32.0-36.5); MEAN CORPUSCULAR VOLUME 92.8 fl (80.0-96.0); PLATELET COUNT, AUTOMATED 404 10^3/uL (150-450); RED BLOOD COUNT 3.05 10^6/uL (4.00-5.40); WHITE BLOOD COUNT 7.7 10^3/uL (4.0-10.0)
[2024-03-28 15:58] LABS: BLOOD UREA NITROGEN 65 MG/DL (9-23); CARBON DIOXIDE LEVEL 23 MMOL/L (20-31); CHLORIDE LEVEL 106 MMOL/L (98-107); CREATININE FOR GFR 2.82 MG/DL (0.55-1.30); GLUCOSE, FASTING 127 MG/DL (60-100); POTASSIUM SERUM 4.9 MMOL/L (3.5-5.1); SODIUM LEVEL 141 MMOL/L (136-145)
[2024-03-28 16:05] VITALS: BP 104/59; TEMP 98.1; O2SAT 98
[2024-03-28 16:35] VITALS: BP 126/60; TEMP 98.2; O2SAT 96
[2024-03-28] MEDS: ONDANSETRON 4MG 2ML VIAL IV PRN (17:23)
[2024-03-28] MEDS: PANTOPRAZOLE 40MG VIAL IV SCH (17:23)
[2024-03-28] MEDS: INSULIN LISPRO (NovoLOG) PER UNIT SC SCH ×2 (17:30→20:02)
[2024-03-28 19:23] VITALS: BP 144/71; TEMP 97.3; O2SAT 99
[2024-03-28] MEDS: ACETAMINOPHEN 325 MG TAB PO PRN (21:01)
[2024-03-28 23:10] VITALS: BP 148/70; TEMP 97.6; O2SAT 97
[2024-03-29] VITALS (8 sets, daily range): BP systolic 144–184; BP diastolic 69–102; TEMP 97–98.3; O2SAT 95–97
[2024-03-29] MEDS: EXCEDRIN MIGRAINE TABLET PO ONE (02:49)
[2024-03-29 05:48] LABS: HEMATOCRIT 29.5 % (36.0-47.0); HEMOGLOBIN 9.5 g/dl (12.0-15.5); MEAN CORPUSCULAR HEMOGLOBIN 30.3 pg (27.0-33.0); MEAN CORPUSCULAR HGB CONC 32.2 g/dl (32.0-36.5); MEAN CORPUSCULAR VOLUME 93.9 fl (80.0-96.0); PLATELET COUNT, AUTOMATED 446 10^3/uL (150-450); RED BLOOD COUNT 3.14 10^6/uL (4.00-5.40); WHITE BLOOD COUNT 9.1 10^3/uL (4.0-10.0)
[2024-03-29] MEDS: HEPARIN SOD (PORCINE) 5000UNITS/ML 1ML VIAL/SYRINGE SQ SCH (05:58)
[2024-03-29] MEDS: LEVOTHYROXINE 100MCG TABLET (0.1MG) PO SCH (05:58)
[2024-03-29 08:35] LABS: CALCIUM LEVEL 8.4 MG/DL (8.5-10.1); CREATININE FOR GFR 2.85 MG/DL (0.55-1.30); GLOMERULAR FILTRATION RATE 18.8 (>58); MAGNESIUM LEVEL 1.9 MG/DL (1.8-2.4); POTASSIUM SERUM 4.8 MMOL/L (3.5-5.1)
[2024-03-29] MEDS: METOPROLOL TART 25 MG TABLET PO SCH (09:04)
[2024-03-29] MEDS: ASPIRIN 325 MG TAB PO SCH (09:04)
== END 2024-03-29 23:33 | disposition short-term general hospital (02) | DRG 812 ==
LOC: M OPP 11:16 → M PCU 15:26
PROVIDERS: ADMIT Internal Medicine; ATTEND Internal Medicine
PROC: 0DB78ZX Excision of Stomach, Pylorus, Via Natural or Artificial Opening Endoscopic, Diagnostic (ICD-10-PCS; 2024-03-28)
PROC: 0DJD8ZZ Inspection of Lower Intestinal Tract, Via Natural or Artificial Opening Endoscopic (ICD-10-PCS; 2024-03-28)
PROC: 0DB98ZX Excision of Duodenum, Via Natural or Artificial Opening Endoscopic, Diagnostic (ICD-10-PCS; principal; 2024-03-28 11:55)
DX: D50.9 Iron deficiency anemia, unspecified (principal); N18.4 Chronic kidney disease, stage 4 (severe); K21.9 Gastro-esophageal reflux disease without esophagitis; E11.22 Type 2 diabetes mellitus with diabetic chronic kidney disease; E03.9 Hypothyroidism, unspecified; I25.10 Atherosclerotic heart disease of native coronary artery without angina pectoris; I12.9 Hypertensive chronic kidney disease with stage 1 through stage 4 chronic kidney disease, or unspecified chronic kidney disease; I95.9 Hypotension, unspecified; R07.89 Other chest pain; F32.A Depression, unspecified; M96.1 Postlaminectomy syndrome, not elsewhere classified; I25.2 Old myocardial infarction; Z87.891 Personal history of nicotine dependence; Z79.82 Long term (current) use of aspirin; Z79.4 Long term (current) use of insulin; Z79.890 Hormone replacement therapy; Z79.899 Other long term (current) drug therapy; Z88.1 Allergy status to other antibiotic agents; Z88.8 Allergy status to other drugs, medicaments and biological substances; Z95.1 Presence of aortocoronary bypass graft

== ENCOUNTER 2024-04-19 14:47 | Outpatient (CLI) | payer MEDICARE, MEDICAID ==
[~2024-04-19] VITALS: Ht 154.9 cm; Wt 91.0 kg
[~2024-04-19 14:47] MED LIST changes: +ALBUTEROL SULFATE 2.5MG/0.5ML INH NEB SOLN INH PRN; +EPINEPHrine INJ 1 MG/ML 1ML AMP IM PRN; +FERRIC CARBOXYMALTOSE 750 MG (VIAL MATE) IN 100ML NS IV ONE; +NS (Normal Saline) 0.9% 1,000 ML IV SCH; +diphenhydrAMINE 50MG/ML VIAL IV PRN; +methylPREDNISolone 125MG 2ML VIAL IV PRN
[2024-04-19 15:00] VITALS: BP 148/78; O2SAT 97
[2024-04-19] MEDS ORDERED: FERRIC CARBOXYMALTOSE INJ 750 MG in NS 100 ML (>50kg) IV ONE (15:00)
[2024-04-19] MEDS: FERRIC CARBOXYMALTOSE 750 MG (VIAL MATE) IN 100ML NS IV ONE (15:13)
[2024-04-19 16:00] VITALS: BP 121/64; O2SAT 99
== END 2024-04-19 16:00 ==
LOC: M INFU 14:47
PROVIDERS: ATTEND Internal Medicine Nephrology
DX: E61.1 Iron deficiency (principal); N18.5 Chronic kidney disease, stage 5
CPT/HCPCS: 96365; J1439

== ENCOUNTER → 2024-10-27 | Outpatient (CLI) | payer MEDICARE, MEDICAID ==
[~2024-10-27] MED LIST changes: -ALBUTEROL SULFATE 2.5MG/0.5ML INH NEB SOLN INH PRN; -EPINEPHrine INJ 1 MG/ML 1ML AMP IM PRN; -FERRIC CARBOXYMALTOSE 750 MG (VIAL MATE) IN 100ML NS IV ONE; +LISI40TA10 PO; -LISI40TA4 PO; -NS (Normal Saline) 0.9% 1,000 ML IV SCH; -diphenhydrAMINE 50MG/ML VIAL IV PRN; -methylPREDNISolone 125MG 2ML VIAL IV PRN
== END ==
LOC: M RAD 17:07
PROVIDERS: ATTEND Nurse Practitioner Family
DX: Z01.818 Encounter for other preprocedural examination (principal); J98.11 Atelectasis